=== PATIENT | female | born 1980 | race Two or more races ===

== ENCOUNTER 2020-07-30 17:45 | Emergency (ER) | payer SELFPAY, OTHER ==
[~2020-07-30] VITALS: Ht 160 cm; Wt 68.2 kg
[2020-07-30 17:49] VITALS: BP 115/81
[2020-07-30] MEDS ORDERED: BENZ-38 PO (18:41)
[2020-07-30] MEDS ORDERED: ALBU6.7H9 INH (18:41)
== END 2020-07-30 19:27 | disposition home or self-care (01) ==
LOC: ER 17:46
DX: R05 Cough (principal); R53.1 Weakness; R06.02 Shortness of breath; R53.83 Other fatigue; Z20.828 Contact with and (suspected) exposure to other viral communicable diseases; Z88.8 Allergy status to other drugs, medicaments and biological substances; Z79.899 Other long term (current) drug therapy
CPT/HCPCS: 71045; 99283